=== PATIENT | female | born 1995 | race Asian ===

== ENCOUNTER 2024-02-04 23:56 | Emergency (ER) | payer SELFPAY ==
[~2024-02-04] VITALS: Ht 157.5 cm; Wt 59.1 kg
[2024-02-05 00:10] VITALS: BP 153/75; PULSE 83; RESP 20; TEMP 98.2
[2024-02-05] MEDS ORDERED: AMOX-457 PO (03:41)
[2024-02-05] MEDS ORDERED: IBUP-1492 PO (03:41)
[2024-02-05] MEDS ORDERED: OXYC-38 PO (03:42)
[2024-02-05] MEDS: HYDROCODONE/ACETAMINOPHEN 5-325 MG TABLET PO ONE (03:47)
[2024-02-05] MEDS: AMOX TR/POT CLAV 875 MG/125 MG TABLET PO ONE (03:47)
[2024-02-05] MEDS: PERTUSS(ACELL),DIPH,TET/PF 0.5 ML SYRINGE [ADULT] IM. ONE (03:48)
== END 2024-02-05 04:18 | disposition home or self-care (01) ==
LOC: EMS 23:56
DX: S51.811A Laceration without foreign body of right forearm, initial encounter (principal); W54.0XXA Bitten by dog, initial encounter; Y93.89 Activity, other specified; Y92.89 Other specified places as the place of occurrence of the external cause; Y99.8 Other external cause status
CPT/HCPCS: 12004; 90471; 90715; 99283